=== PATIENT | male | born 1950 | race Caucasian/White ===

== ENCOUNTER 2022-11-01 07:55 | Outpatient (CLI) | payer MEDICARE, OTHER ==
[2022-11-01] MEDS ORDERED: Iopamidol 300 61% 100 ML VIAL FS ONE (12:06)
== END 2022-11-01 07:56 | disposition home or self-care (01) ==
LOC: CSHCT 07:55
PROVIDERS: ATTEND Physician Assistant Medical
DX: R19.7 Diarrhea, unspecified (principal); R63.4 Abnormal weight loss
CPT/HCPCS: 74177; 82565; Q9967

== ENCOUNTER 2023-04-20 13:54 | Outpatient (CLI) | payer MEDICARE, OTHER | END 2023-04-20 13:55 | disposition home or self-care (01) | LOC: CSHMRI 13:54 | PROVIDERS: ATTEND Neurological Surgery | DX: M48.062 Spinal stenosis, lumbar region with neurogenic claudication (principal); M41.9 Scoliosis, unspecified; M47.816 Spondylosis without myelopathy or radiculopathy, lumbar region | CPT/HCPCS: 72148 ==